=== PATIENT | female | born 1950 | race Caucasian/White ===

== ENCOUNTER → 2016-11-04 | Day surgery (SDC) | payer MEDICAID, MEDICARE ==
[~2016-11-04] MED LIST: AMT25T PO; AMT50T PO; CLIN60LO2 TP; DOCU250C2 PO; DOXY100T2 PO; DOXY40CP PO; FLUO20CA25 PO; FLUO40CA PO; FLUT16SP NS; Iohexol 240 mg/mL 10 mL Inj ONE; KTC2C15 TP; MethylprednisoLONE Depot 80 mg/mL Inj ONE; OMEP20TA86 PO; POLY17PO6 PO
[2016-11-04 11:22] VITALS: BP 140/93; PULSE 66; RESP 20; O2SAT 96
--- NOTE | 2016-11-04 16:40 | PCM.PROC ---
Procedure Note Date of Service: Nov 04, 2016 Pre Procedure Diagnosis: PROCEDURE: Lumbar Interlaminar epidural steroid injection. LEFT paramedian L4- L5 ASA / ANTI-COAGULATION . No asa x 7 days. PRE-PROCEDURE DIAGNOSIS: Lumbar radiculopathy POST-PROCEDURE DIAGNOSIS: same INDICATION: 65-year-old female referred by Dr. Blackmon for epidural steroid injection for lumbar radiculopathy PERFORMED BY: Tacos Mooney MD DESCRIPTION OF PROCEDURE: Patient was met in the holding area. Consent was signed, site was confirmed and all questions were answered. Patient was taken to the procedure suite and placed prone on the procedure table.The appropriate time out in the OR was performed confirming the patient's name, date of , planned procedure, and presence of the appropriate instrumentation. Area was prepped and draped in sterile fashion. Local anesthesia with 1% lidocaine was injected. An 18-gauge Tuohy needle was advanced toward the interlaminar space using fluoroscopic guidance after optimizing the AP view. A loss of resistance syringe was attached as we approached the epidural space in the lateral view. After iipu-[id number]-[id number] was obtained, radiopaque contrast was injected under live fluro which confirmed epidural placement without intravascular uptake. Then , 80 mg depomedrol was injected without difficulty. ANESTHESIA: Local. EBL: None. No Blood Products Used COMPLICATIONS: None SPECIMENS: None POST-PROCEDURE DISPOSITION: Patient was returned to the holding area in stable condition. They were discharged home when all discharge criteria were met. Evaluation/Physical Exam before discharge revealed: DISCHARGE MEDICATIONS: None FOLLOW UP: Appointment with Dr. Blackmon in 4 weeks Tacos Mooney MD * Pain Management * Anesthesiology .ED: Y: Patient given care and follow up instructions Tacos Mooney MD Nov 04, 2016 16:40
== END | disposition home or self-care (01) ==
LOC: END 05:05
PROVIDERS: ATTEND Anesthesiology Pain Medicine
DX: M54.16 Radiculopathy, lumbar region (principal); F41.9 Anxiety disorder, unspecified; M43.16 Spondylolisthesis, lumbar region
CPT/HCPCS: 62323; J1040

== ENCOUNTER 2017-02-14 05:32 | Day surgery (SDC) | payer MEDICARE ==
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
[~2017-02-14] VITALS: Ht 152.4 cm; Wt 54.6 kg
[2017-02-14] VITALS (12 sets, daily range): BP systolic 106–141; BP diastolic 62–91; PULSE 58–107; RESP 11–25; O2SAT 85–100
[~2017-02-14 05:32] MED LIST changes: -AMT25T PO; -DOXY100T2 PO; -FLUO20CA25 PO; -Iohexol 240 mg/mL 10 mL Inj ONE; -MethylprednisoLONE Depot 80 mg/mL Inj ONE
[2017-02-14] MEDS ORDERED: Glycopyrrolate 0.2 MG/ML 1mL Inj ONE (05:33)
[2017-02-14] MEDS ORDERED: Rocuronium 10 mg/mL 5 mL Inj ONE (05:33)
[2017-02-14] MEDS ORDERED: EPHEDrine/NS 5 mg/mL 5 mL Syringe ONE (05:33)
[2017-02-14] MEDS ORDERED: fentaNYL-PF 50 mCg/mL 2 mL Inj ONE (05:33)
[2017-02-14] MEDS ORDERED: Phenylephrine/NS 100 mCg/mL 10 mL Syringe IVPUSH ONE (05:33)
[2017-02-14] MEDS ORDERED: Ondansetron 2 mg/mL 2 mL Inj ONE (05:33)
[2017-02-14] MEDS ORDERED: Dexamethasone 4 mg/mL Inj ONE (05:33)
[2017-02-14] MEDS ORDERED: Neostigmine 1 mg/mL 10 mL Inj ONE (05:33)
[2017-02-14] MEDS ORDERED: Propofol 10,000 mCg/mL 20 mL Inj ONE (05:33)
[2017-02-14] MEDS: Lactated Ringer's 1,000 ML IV SCH ×2 (05:36→07:32)
[2017-02-14] MEDS ORDERED: Clindamycin 900 mg/50 mL D5W Premix IV ONE (06:00)
[2017-02-14] MEDS ORDERED: Bacitracin 50,000 unit Inj IRRIGATION ONE ×2 (06:00→08:16)
[2017-02-14] MEDS ORDERED: Thrombin Powder 5,000 Unit TOPICAL ONE ×2 (06:00→08:17)
[2017-02-14] MEDS ORDERED: Lactated Ringer's 1,000 ML IV SCH ×2 (07:18→09:24)
[2017-02-14] MEDS ORDERED: Lactated Ringer's 500 ML IV PRN (07:18)
--- NOTE | 2017-02-14 07:18 | PCM.HPANE ---
Patient Data Surgeon Admitting Provider: Attending Provider:Moe Blackmon MD Primary Care Physician:Carlos Khan MD Other Provider:[facility] Reason for Visit Left Lumbar Radiculopathy Ht/WT & BMI Height (Feet): 5 Height (Inches): 0 Weight (Kilograms): 54.6 Body Mass Index 23.00 Allergies Coded Allergies: Sulfa (Sulfonamide Antibiotics) (Verified Allergy, Severe, 12/10/15) seizure per h&p diphenhydramine (Verified Allergy, Severe, 12/10/15) seizure per h&p Honey Bee (Verified Allergy, Unknown, 12/10/15) per h&p Penicillins (Verified Adverse Reaction, Severe, Nausea,Vomiting, 12/10/15) per h&p morphine (Verified Adverse Reaction, Severe, Nausea,Vomiting, 12/10/15) per h&p Past Anesthesia History Anesthesia History: Denies:: Abnormal Airway, Anesthesia Reactions, Difficult Intubation, Fam Anesthesia Reaction, Fam Malignant Hypertherm, Malignant Hyperthermia Diabetes History Hx Diabetes?: No Current Bedside Blood Glucose: 109 MRSA MRSA: No Medications Hypertension Medication: No Home Meds Incl Beta Steve: No Reported Medications Doxycycline Monohydrate (Oracea)40 Mg Cpmp.24hr40 Mg PO DAILY 02/09/17 Omeprazole 20 Mg Tablet.dr20 Mg PO DAILY 02/09/17 Polyethylene Glycol 3350 (Miralax)17 Gm Powd.pack17 Gm PO DAILY 02/09/17 Ketoconazole 15 Gm Cream..g.15 Gm TP BID 02/09/17 Fluticasone Propionate (Fluticasone Propionate Nasal)16 Gm Berwick.susp2 Berwick NS BID #16 GM Ref 0 02/09/17 Fluoxetine 40 Mg Yvfrsdo61 Mg PO DAILY Ref 0 02/09/17 Docusate Sodium 250 Mg Bcylhuy132 Mg PO BID PRN For Constipation Ref 0 02/09/17 Clindamycin Phosphate (Clindamycin Phosphate Topical)60 Ml Lotion1 Applic TP BID #60 ML Ref 0 02/09/17 Amitriptyline 50 Mg Tab50 Mg PO HS Ref 0 02/09/17 Discontinued Reported Medications Amitriptyline 25 Mg Tab25 Mg PO HS Ref 0 07/14/16 Doxycycline Monohydrate (Oracea)40 Mg Cpmp.24hr40 Mg PO 07/14/16 Fluoxetine 20 Mg Idmfaag06 Mg PO DAILY Ref 0 04/22/16 Ketoconazole 15 Gm Cream..g.15 Gm TP BID 04/21/16 Fluticasone Propionate (Fluticasone Propionate Nasal)16 Gm Berwick.susp2 Berwick NS BID #16 GM Ref 0 04/21/16 Clindamycin Phosphate (Clindamycin Phosphate Topical)60 Ml Lotion1 Applic TP BID #60 ML Ref 0 12/18/15 Doxycycline Hyclate 100 Mg [id number] Mg PO BID 09/18/15 History History of ENT Problems?: No HEENT History: Denies:: Abnormal Airway Cataracts Difficult Intubation Dysphagia Glaucoma Hearing Problem Sinus Problem TMJ Denture Type: Partial- Upper Teeth Condition: Within Normal Limits Hx of Heart Problems?: No Cardiovascular History: Denies:: AICD Abdominal Aortic Aneurism Atrial Fibrillation Cardiac Surgery Chest Pain Congestive Heart Failure Coronary Artery Disease Edema Heart Murmur Hypertension Irregular Heartbeat Pacemaker Peripheral Vascular Rheumatic Fever Thrombophlebitis Valvular Heart Disease Other Cardiac History: > 4 METS Hx of Respiratory Problem?: No Respiratory History: Denies:: Asthma COPD Emphysema Oxygen Administration Use of C-PAP Machine Hx Neurologic Problems?: No Neurological History: Denies:: CVA Headaches Multiple Sclerosis Parkinson's Disease Seizures Hx of GI Problems?: No Hx of Problems?: No Genitourinary History: Denies:: Kidney Stones Urinary Tract Infection Female Hx: Denies:: Currently Problems with Breasts? Hx Musculoskeletal Problems?: Yes Musculoskeletal History: Positive for:: Back Injury (current admission problem L4-5) Denies:: Joint Replacement Hx of Psycho/Social Problems?: Yes Psycho Social History: Positive for:: Anxiety (panic attacks) Hx Surgeries?: Yes (C-SECT X2, HYST, L KNEE) Hx Any Other Health Problems?: Yes Other History: Denies:: Cancer Thyroid Disease Hx Diabetes: NoBedside Blood Glucose: 109 Hx Alcohol Use: Yes (2/WEEK)Hx Substance Use: No Smoking Status: Never Smoker Have You Smoked inLast 12 mo: No Stop/Bang KENDAL Risk Assessment: Low Risk, <3 Yes Risk Assessment Category Category 1A: Patient has history of documented sleep apnea, and HAS NOT received any narcotic, sedative or anesthesia administration during this stay. Category 1B: Patient has history of documented sleep apnea, and HAS received any narcotic , sedative or anesthesia administration during this stay Category 2: Patient has SUSPECTED Obstructive Sleep Apnea, and HAS received any narcotic , sedative or anesthesia administration during this stay. Category 3: Patient has SUSPECTED Obstructive Sleep Apnea and HAS NOT received narcotic, sedative or anesthesia administration during this stay. Category 4: Outpatient in Procedural Areas with known sleep apnea or who screen positive for High Risk via the STOP/BANG questionnaire. Exam Exam Vital Signs Vital Signs Date Time Temp Pulse Resp B/P Pulse Ox O2 Delivery O2 Flow Rate FiO2 02/14/17 06:05 36.4 61 18 141/91 98 Room Air General Appearance: Alert, Oriented X3, Cooperative, No Acute Distress HEENT/AIRWAY: MP 2 Lungs: Clear to Auscultation, Normal Air Movement Heart: Exam Unremarkable, Regular Rate/Rhythm, No Murmurs/Rubs/Gallops Meds/Labs/Diagnostics Admission Meds Current Medications Lactated Ringer's (Lr) 1,000 ml @ 120 mls/hr Q8H20M IV Last administered on t 05:36; Start 02/14/17 at 05:00; Stop 02/14/17 at 13:19 Bedside Blood Glucose: 109 Plan Impression Patient chart reviewed, patient interviewed and anesthestic plan with risks, benefits, and alternatives discussed, and informed consent obtained. ASA Physical Status: ASA2 Mod Systemic Disease Anesthetic Plan: GA Bene/Risks/Altern/Consents: Yes HP Complete Prior to Induction: Yes Earl Iqbal MD February 14, 2017 06:57
[2017-02-14] MEDS ORDERED: Phenylephrine 10,000 mCg/mL Inj IVPUSH PRN (07:20)
[2017-02-14] MEDS ORDERED: Ondansetron 2 mg/mL 2 mL Inj IVPUSH PRN ×3 (07:20→09:25)
[2017-02-14] MEDS ORDERED: Labetalol 5 mg/mL 4 mL Inj IV PRN (07:20)
[2017-02-14] MEDS ORDERED: Atropine 0.4 mg/mL Inj IVPUSH PRN (07:20)
[2017-02-14] MEDS ORDERED: EPHEDrine Sulfate 50 mg/mL Inj IVPUSH PRN (07:20)
[2017-02-14] MEDS ORDERED: MetoCLOpramide 5 mg/mL 2 mL Inj IVPUSH PRN ×2 (07:20→09:25)
[2017-02-14] MEDS ORDERED: HYDROmorphone 1 mg/mL Inj IVPUSH PRN (07:20)
[2017-02-14] MEDS ORDERED: Bupivacaine-MPF 0.25%/EPI 30 mL Inj INJ ONE (08:17)
[2017-02-14] MEDS ORDERED: Gelatin Sponge 12-7 MM TOPICAL ONE (08:17)
--- NOTE | 2017-02-14 08:36 | DRSVH ---
PROCEDURE: X-RAY LUMBAR SPINE, 2 OR 3 VIEW INDICATIONS: L4-5 HEMILAMI, INTRAOPERATIVE LOCALIZATION TECHNIQUE: 2 views of the lumbar spine were acquired. COMPARISON: [facility], MR, MR LUMBAR SPINE WO CON, 06/25/2015, 13:43. [facility] , MR, MR LUMBAR SPINE WO CON, 05/30/2016, 12:43. [facility], CT, CT LUMBAR SPINE WO CON, 06/22/2016, 8:10. FINDINGS: Bones: Radiopaque surgical probe projected over the posterior elements at the L4-L5 level for operati ve planning. Soft tissues: Suboptimally visualized. IMPRESSION: Localization over the posterior elements at the L4-L5 level. Dr. Blackmon given results at 0830 hrs. 02/14/2017. Dictated by: Donte Mack RR Interpreted: Tianna Quezada MD on 02/14/2017 at 8:34 Transcribed by: SHELIA on 02/14/2017 at 8:36 Approved by: Tianna Quezada MD, PhD on 02/14/2017 at 9:20
[2017-02-14] MEDS ORDERED: Lactated Ringer's 1,000 ML IV ONE (09:01)
--- NOTE | 2017-02-14 09:23 | PCM.DISURG ---
Surgical Discharge Instruction Date of Service February 14, 2017 Dates of Hospitalization Date of Hospital Admission Day Surgery status 02/14/2017 Providers Admitting Physician: Primary Care Physician: Carlos Khan MD Attending Physician: Moe Blackmon MD Discharge Diagnosis Discharge Diagnosis Status post minimal access METRx left L4-5 partial hemilaminectomy with lateral recess decompression of the L4 & L5 nerve roots with harvest of subcutaneous fat for epidural graft from separate incision Post Operative diagnosis Status post minimal access METRx left L4-5 partial hemilaminectomy with lateral recess decompression of the L4 & L5 nerve roots with harvest of subcutaneous fat for epidural graft from separate incision Additional Instructions Discharge Instructions Lumbar Decompression Instructions What is my recovery like? Patient usually go home the same day of surgery. A lumbar brace is worn for comfort only. What are my restrictions? You should not lift anything heavier than five pounds. You should not perform any excessive bending from the waist or twisting movements. Can I Shower? You may shower when you go home. You must remove the outside dressing on the 7th day after surgery, or change as needed if soiled or saturated (replacing new sterile gauze & water proof dressing) otherwise leave alone. The remaining small pieces of tape (steri-strips) directly on top of the incision may get wet. The steri-strips will fall off on their own. Can I drive? No, you should not drive until specifically given permission from your Doctor in a follow up appointment. Most Patient's can drive in 2-3 weeks if they are not taking narcotic pain medications or muscle relaxers. You may ride in a car, but should avoid trips longer than two hours in duration. When can I return work / sports? Your Doctor will discuss your return to work with you on your first postoperative follow-up appointment. Most patients may return to work within 2 weeks for sedentary jobs. More physically demanding jobs may require 3-6 months of healing before such work can be considered. When should I call the doctor? You should call your Doctor or go to the Emergency Department if you develop chest pain, oversedation, shortness of breath, a temperature greater than 101.5 F, severe uncontrolled pain or weakness, loss of bowel or bladder function, choking, lots or drainage, pus discharge or constipation. Instructions Regarding Comfort & Pain Medication Use: During the recovery period , even with the use of pain medication, you may experience pain at the site of surgery. You may also have the same type of pain you had before surgery. Please use your pain scale as a guide for taking your pain medication. When your pain is greater than 4 out of 10, or when your pain reaches your personal tolerable level of pain, take your pain medication as prescribed. Use your pain medication on an 'as needed' basis. This means if your pain level is within your tolerable level of pain you DO NOT need to take the medication. As you get better, you will notice you can increase the time interval between doses and decrease the number of tablets you are taking, gradually taking less and less pain medication. Taking pain medication when it is not necessary (for example when your pain is tolerable or acceptable) can result in dangerous side effects and over- sedation. Signs and symptoms of over-sedation include: drowsiness, excessive sleeping, slow or difficult breathing, slurred speech, impaired thinking, confusion, impaired motor coordination. If you have any of these symptoms stop taking the medication and immediately contact your doctor. IF SYMPTOMS ARE LIFE THREATENING CALL 911. To decrease pain and swelling, frequently apply an ice pack for 20 min intervals with at least one hour off. When to take Acetaminophen for pain? If you don't have liver problems, allergies and/or Tylenol is not in your current pain medication. Take Extra Strength Tylenol 500mg 2 tabs by mouth every 6 hours as needed for pain. DO NOT EXCEED 8 TABS PER DAY. Follow Up Plan Follow Up Plan Follow-up with physician certified medical assistant and outpatient neurosurgical clinic in 1 week for wound check. Follow-up Provider (F9): Lanre Ly PA-C Additional Information Attending Statement All documentation reviewed & orders authorized by Dr. Moe Blackmon M.D. Lanre Ly PA-C February 14, 2017 09:23
[2017-02-14] MEDS ORDERED: Sodium Biphos-Phos 133 mL Enema RECTAL PRN (09:25)
[2017-02-14] MEDS ORDERED: hydrOXYzine Pamoate 25 mg Capsule PO PRN (09:25)
[2017-02-14] MEDS ORDERED: Magnesium Hydroxide 10 mL Oral Concentration PO PRN (09:25)
[2017-02-14] MEDS ORDERED: Senna-Docusate 8.6-50 mg Tablet PO PRN (09:25)
[2017-02-14] MEDS ORDERED: oxyCODONE-Acetamin 5-325 mg Tablet PO PRN (09:25)
[2017-02-14] MEDS ORDERED: Polyethylene Glycol (PEG) 17 Gm Powder PO PRN (09:25)
--- NOTE | 2017-02-14 09:35 | PCM.ANEP1 ---
Post Anesthesia Phase 1 PACU Phase 1 Assessment Date of Service: February 01, 2017 Vital Signs VSS, see RN notes in PACU Vital Signs Date Time Temp Pulse Resp B/P Pulse Ox O2 Delivery O2 Flow Rate FiO2 02/14/17 06:05 36.4 61 18 141/91 98 Room Air Anesthetic Administered: GA Level of Alertness: Awake, talking HUTCHINSON's with Equal Strength: Yes Pain: No Nausea or Vomiting: No Cardiovascular Function and Hy: Yes Oxygen Delivery: Simple Mask Lungs: Clear to Auscultation, Normal Air Movement Complications: No Follow up Care: No Earl Iqbal MD February 14, 2017 09:35
--- NOTE | 2017-02-14 09:42 | OP ---
[address] [address] OPERATIVE REPORT PATIENT: SAYRA REED : 1950 MR#: [id number] ADMIT: 02/14/2017 JOB ID: [id number] DATE OF SURGERY: 02/14/2017 PREOPERATIVE DIAGNOSIS(ES): Persistent left lumbar radiculopathy secondary to bulging disc and lateral recess narrowing L4-L5. POSTOPERATIVE DIAGNOSIS(ES): Persistent left lumbar radiculopathy secondary to bulging disc and lateral recess narrowing L4-L5. OPERATIVE PROCEDURE: 1. METRx microscopic left L4-L5 partial hemilaminotomy with lateral recess decompression of the L4 and L5 nerve roots. 2. Placement of epidural fat graft obtained from a separate incision. 3. Intraoperative fluoroscopy of less than one hour. SURGEON: Moe Blackmon MD VACCINATOR: Lanre Ly PA-C ANESTHESIA: General endotracheal. COMPLICATIONS: None. ESTIMATED BLOOD LOSS: Less than 30 cc. DRAINS: #10 Burmese drain. FINDINGS AT THE TIME OF SURGERY: There was evidence of bulging disc and moderate to severe lateral recess narrowing. Lateral recess decompression of the L4 and L5 nerve roots was performed. After decompression, a nerve root feeler could be placed at the L4 and L5 neural foramen without difficulty. No evidence of any CSF leak or durotomy. INDICATION: This is a 66-year-old female, who has been evaluated for persistent lower back and left leg pain. The patient pain has pain from her back into the hip, and down the posterolateral aspect of the leg. The patient was seen for neurosurgical evaluation and felt to have lumbar radiculopathy at the L4-L5 level. She had epidural steroid injection which provided temporary relief, and follow up. The patient subsequently decided to proceed with surgery. Indications and complications of the procedure were explained to the patient. Chance for symptomatic improvement would be approximately 70% at one year. She acknowledged her understanding and wanted to proceed. DESCRIPTION OF PROCEDURE: The patient was evaluated in the preop area. The L4-L5 level on the left side was marked. The patient's history, examination, medications, allergies and labs were reviewed. She was then taken to the operating room. She underwent general endotracheal anesthesia without complications. She was given 2 g Ancef. Donita were placed on the lower extremity. The patient was placed in prone position on the Alan frame in flexed position. The patient's extremities were properly padded in position. The lower back was then prepped and draped in the usual sterile fashion for a minimal access decompression after confirming prepping and draping. The appropriate time-out in the OR was performed, confirming the patient's name, date of , planned procedure, and the presence of appropriate instrumentation. The patient's KENDAL, beta block, diabetic and MRSA status was reviewed. Antibiotic administration, DVT prophylaxis and appropriate imaging on the screen was confirmed. The skilled assistance of the PA, Lanre Ly, was necessary for the successful completion of the case. He was essential for proper positioning, retraction of the thecal sac and nerve root, as well as general safety of the patient. After the time-out was completed, a spinal needle was inserted adjacent to the spinous process of L4 and L5 on the left side. Intraoperative fluoroscopy was brought into place, verifying the level. After the level was verified, it was then marked on the patient's skin. The needle was removed and the left paraspinous soft tissue was infiltrated with 0.25% Marcaine with epinephrine. After the infiltration, a left paramedian incision was made, carried down through the skin and subcutaneous tissue. Subcutaneous fat graft was obtained. A second incision was made, carried down through the skin and subcutaneous tissue, down through the level of the lumbar dorsal fascia. First blunt dilating operating tube was then placed under fluoroscopic guidance over the L4-L5 disc space. Sequential dilations were undertaken until a 5 x 22 mm operating tube was in place and secured to the articulating arm. AP view showed that the operating tube was adjacent to the spinous process of L4 and L5 on the left side. The L4-L5 level was verified by Radiology. Once fluoroscopy was removed, the operating microscope was brought into place. Overlying soft tissue was removed using Bovie cautery and straight pituitary forceps. A high-speed drill was then used to thin the inferior lamina of L4 and superior lamina of L5. A generous hemilaminotomy was performed with lateral recess decompression of the L4 and L5 nerve roots. There was moderate to severe lateral recess narrowing and very thickened ligamentum flavum. Epidural veins were coagulated and cut. The thecal sac and L5 nerve root were gently retracted, medially exposing the bulging disc. The surface of the disc was coagulated and shrunk. No diskectomy was required. At that point, after hemostasis was achieved, a nerve root feeler was placed at the L5 and L4 nerve root foramina without difficulty. There did not appear to be any further bony soft tissue compression. The wound was irrigated with bacitracin containing saline. After hemostasis was achieved, the fat graft was then placed, followed by Gelfoam soaked in thrombin. The tube was then carefully removed, coagulating bleeding points. Once it was removed, a #10 Burmese drain was placed deep into the wound and brought through a separate stab incision and connected to bulb suction. The fascial layer was then reapproximated using interrupted 0 Vicryl suture. Subcutaneous layer was then closed using inverted 3-0 Vicryl suture. The skin was then closed using 4-0 Vicryl suture in a subcuticular fashion. The incision was then dried and cleaned. This was then followed by Steri-Strips. It was then covered with sterile Telfa dressing and Op-Site. Drain dressing was applied. The patient was then transferred to a stretcher, awakened, extubated, taken to the PAR in stable condition. The patient tolerated the procedure well without any major complications. All sponge, needle, and instrument counts were correct x2. Estimated blood loss was less than 30 cc. It is anticipated that the patient's drain will be removed before discharge, and the patient's surgery will be done as an outpatient procedure. JOHN
[2017-02-14] MEDS: Ketorolac 15 mg/mL Inj IVPUSH PRN ×2 (09:51→10:52)
[2017-02-14] MEDS: fentaNYL-PF 50 mCg/mL 2 mL Inj IVPUSH PRN ×2 (09:51→09:58)
[2017-02-14] MEDS ORDERED: Senna-Docusate 8.6-50 mg Tablet PO SCH (20:30)
== END 2017-02-14 23:59 | disposition home or self-care (01) ==
LOC: SAS 05:32
PROVIDERS: ATTEND Neurological Surgery
DX: M54.16 Radiculopathy, lumbar region (principal); M43.16 Spondylolisthesis, lumbar region; F40.01 Agoraphobia with panic disorder; R56.9 Unspecified convulsions
CPT/HCPCS: 63047; 63048; 72100; 76000; J1100; J1885; J2370; J2405; J2710; J2765; J3010; J7120; Q0177